=== PATIENT | male | born 1970 | race Caucasian/White ===

== ENCOUNTER 2018-04-03 19:11 | Emergency (ER) | payer BC, OTHER ==
[2018-04-03 19:35] VITALS: BP 129/82
[2018-04-03] MEDS ORDERED: Amoxicillin/Clavulanate TAB* 875 MG PO ONE (20:01)
--- NOTE | 2018-04-03 20:57 | UC ---
Throat Pain/Nasal Stevie HPI - HPI Summary HPI Summary: 48 yo WM c/o left sinus pain x 2 weeks that started with a URI, went to dentist , obtained CT- had B/L opacification of maxillary sinuses R>L but still hurts to breathe, jose f/c - History of Current Complaint Chief Complaint: UCRespiratory Stated Complaint: SINUS PAIN Time Seen by Provider: 04/03/18 19:30 Hx Obtained From: Patient Onset/Duration: Sudden Onset, Lasting Days Severity: Moderate Pain Intensity: 0 Pain Scale Used: 0-10 Numeric Cough: Nonproductive Associated Signs & Symptoms: Positive: Negative - Allergies/Home Medications Allergies/Adverse Reactions: Allergies Allergy/AdvReac Type Severity Reaction Status Date / Time No Known Allergies Allergy Verified 06/13/13 11:54 Home Medications: Home Medications Ibuprofen TAB* [Motrin TAB* 600 MG] 1 tab PO TID PRN 04/03/18 [History Confirmed 04/03/18] raNITIdine HCl [Zantac] 1 tab PO DAILY PRN 04/03/18 [History Confirmed 04/03/18] PMH/Surg Hx/FS Hx/Imm Hx Previously Healthy: Yes - Surgical History Surgical History: None - Social History Alcohol Use: None Substance Use Type: Marijuana Smoking Status (MU): Never Smoked Tobacco - Immunization History Most Recent Tetanus Shot: 15 YEARS AGO Review of Systems Constitutional: Negative Skin: Negative Eyes: Negative ENT: Sinus Pain/Tenderness Respiratory: Negative Cardiovascular: Negative Gastrointestinal: Negative Genitourinary: Negative Motor: Negative Neurovascular: Negative Musculoskeletal: Negative Neurological: Negative Psychological: Negative All Other Systems Reviewed And Are Negative: Yes Physical Exam Triage Information Reviewed: Yes Appearance: Well-Appearing Vital Signs: Initial Vital Signs Temp 36.7 C 04/03/18 19:27 Pulse 54 04/03/18 19:27 Resp 16 04/03/18 19:27 BP 129/82 04/03/18 19:27 Pulse Ox 100 04/03/18 19:27 Eye Exam: Normal ENT Exam: Normal ENT: Positive: Sinus tenderness - B/L maxillary, left upper teeth pain, swollen erythematous turbinates Dental Exam: Normal Neck exam: Normal Neck: Positive: 1 Respiratory Exam: Normal Cardiovascular Exam: Normal Abdominal Exam: Normal Musculoskeletal Exam: Normal Neurological Exam: Normal Psychological Exam: Normal Skin Exam: Normal Throat Pain/Nasal Course/Dx - Differential Dx/Diagnosis Provider Diagnoses: sinus infection Discharge - Sign-Out/Discharge Documenting (check all that apply): Discharge/Admit/Transfer - Discharge Plan Condition: Stable Disposition: HOME Prescriptions: Amoxicillin/Clavulanate TAB* [Augmentin TAB 875*] 875 mg PO BID 10 Days #20 tab Azelastine 0.15% NASAL(NF) [Astepro 0.15% NASAL (NF)] 1 spray NASAL BID 10 Days #1 btl Patient Education Materials: Sinusitis (ED) Referrals: No Primary Care Phys,NOPCP [Primary Care Provider] - - Billing Disposition and Condition Condition: STABLE Disposition: HOME
== END 2018-04-03 20:08 | disposition home or self-care (01) ==
LOC: UCEAST 19:11
DX: J32.9 Chronic sinusitis, unspecified (principal)
CPT/HCPCS: 99202; A9270-GY; G0463

== ENCOUNTER 2018-04-04 13:16 | Emergency (ER) | payer BC ==
[2018-04-04 13:39] VITALS: BP 133/94
--- NOTE | 2018-04-04 14:38 | UC ---
Throat Pain/Nasal Stevie HPI - HPI Summary HPI Summary: This is a 48 yo male seen yesterday and diagnosed with sinusitis. He was prescribed Augmentin and nasal antihistamine which he has been taking as prescribed. He awoke this am with worsening pain and facial swelling. He was unable to sleep last night due to the pain. - History of Current Complaint Chief Complaint: UCRespiratory Stated Complaint: SINUS COMPLAINT Pain Intensity: 9 - Allergies/Home Medications Allergies/Adverse Reactions: Allergies Allergy/AdvReac Type Severity Reaction Status Date / Time No Known Allergies Allergy Verified 04/04/18 13:39 PMH/Surg Hx/FS Hx/Imm Hx Previously Healthy: Yes - Surgical History Surgical History: None - Family History Known Family History: Positive: None - Social History Alcohol Use: None Substance Use Type: Marijuana Smoking Status (MU): Never Smoked Tobacco - Immunization History Most Recent Tetanus Shot: 15 YEARS AGO Review of Systems Constitutional: Negative Skin: Negative Eyes: Negative ENT: Sinus Pain/Tenderness Respiratory: Negative Cardiovascular: Negative Gastrointestinal: Negative Genitourinary: Negative Motor: Negative Neurovascular: Negative Musculoskeletal: Negative Neurological: Negative Psychological: Negative Is Patient Immunocompromised?: No All Other Systems Reviewed And Are Negative: Yes Physical Exam Triage Information Reviewed: Yes Appearance: Well-Appearing Vital Signs: Initial Vital Signs Temp 98.7 F 04/04/18 13:34 Pulse 63 04/04/18 13:34 Resp 18 04/04/18 13:34 BP 133/94 04/04/18 13:34 Pulse Ox 100 04/04/18 13:34 Vital Signs Reviewed: Yes ENT: Positive: Nasal congestion, Other - facial swelling over L maxillary sinus Neck: Positive: Supple, Nontender Respiratory: Positive: Lungs clear, Normal breath sounds Cardiovascular: Positive: RRR, No Murmur Musculoskeletal Exam: Normal Neurological Exam: Normal Psychological Exam: Normal Skin Exam: Normal Throat Pain/Nasal Course/Dx - Course Course Of Treatment: 48 yo male with recent diagnosis of sinusitis, here today with worsening symptoms. Prescribe steroid pack and few doses of narcotic. ISTOP checked. - Differential Dx/Diagnosis Differential Diagnosis/HQI/PQRI: Laryngitis, Pharyngitis, Sinusitis Provider Diagnoses: 1. Acute sinusitis Discharge - Sign-Out/Discharge Documenting (check all that apply): Discharge/Admit/Transfer - Discharge Plan Condition: Stable Disposition: HOME Prescriptions: Hydrocodone/Acetaminophen [Hydrocodone-Acetamin 5-325 mg] 1 tab PO Q4H PRN #10 tablet MDD 6 tabs PRN Reason: Pain methylPREDNISolone [Medrol] 4 mg PO .SEE EBENEZER INSTRUCTION #1 ebenezer Patient Education Materials: Sinusitis (ED) Referrals: No Primary Care Phys,NOPCP [Primary Care Provider] - Additional Instructions: Instructions: 1. Cont antibiotics and nasal spray as prescribed 2. Start steroid pack as directed 3. Use pain medication as necessary - Billing Disposition and Condition Condition: STABLE Disposition: HOME
== END 2018-04-04 14:30 | disposition home or self-care (01) ==
LOC: UCEAST 13:16
DX: J01.90 Acute sinusitis, unspecified (principal)
CPT/HCPCS: 99212; G0463